=== PATIENT | male | born 1970 | race Two or more races ===

== ENCOUNTER 2018-10-22 18:58 | Emergency (ER) | payer SELFPAY ==
[~2018-10-22] VITALS: Ht 165.1 cm; Wt 34.0 kg
[2018-10-22 19:10] VITALS: BP 114/78
--- NOTE | 2018-10-22 19:10 | NUR ---
ED Nurse Note: Patient walk in c/o cough for 15 days. Patient reports pain all over body, and chest pain when coughing. pt complains of 9/10 pain whern cpughing. pa on the bedside. will continue to monitor.
--- NOTE | 2018-10-22 19:26 | NUR ---
ED Nurse Note: ecologist technician on bedside. rt call for tx. will continue to monitor.
--- NOTE | 2018-10-22 19:27 | Emergency Room Report ---
History of Present Illness General Chief Complaint: Upper Respiratory Illness Source: Patient Present Illness HPI 48-year-old male presents the ER complaining of cough for the past 10 days. States has not taken medication for relief of symptoms. Denies fever. Denies recent travel outside the country. Denies hemoptysis. Reports cough with sputum. Reports cough has led to chest pain that is reproducible. Reports after repeated coughing fits he begins to experience shortness of breath. Denies history of heart attack or heart disease. Denies history of asthma. Reports sick contacts at home with similar flu-like, cough symptoms. Denies calf pain. Denies smoking. Denies cigarette or marijuana use. Denies other aggravating or relieving factors. Denies vomiting or diarrhea. Allergies: Coded Allergies: No Known Allergies (Unverified , 10/22/18) Patient History Past Medical History: see triage record Reviewed Nursing Documentation: PMH: Agreed; PSxH: Agreed Nursing Documentation-PMH Past Medical History: No Stated History Review of Systems All Other Systems: negative except mentioned in HPI Physical Exam Vital Signs Date Time Temp Pulse Resp B/P (MAP) Pulse Ox O2 Delivery O2 Flow Rate FiO2 10/22/18 19:04 98.2 90 18 114/78 95 Sp02 EP Interpretation: reviewed, normal General Appearance: well appearing, no apparent distress, alert, GCS 15, non- toxic Head: normocephalic, atraumatic Eyes: bilateral eye normal inspection, bilateral eye PERRL ENT: hearing grossly normal, normal pharynx, no angioedema, normal voice, uvula midline, moist mucus membranes Neck: full range of motion, no meningismus, no bony tend Respiratory: lungs clear, no rhonchi, no respiratory distress, no accessory muscle use, no wheezing, decreased breath sounds, speaking full sentences, other - Chest tender to palpation, no flail chest, no deformity Cardiovascular #1: regular rate, rhythm, no edema Gastrointestinal: non tender, soft, no mass, non-distended, no guarding, no rebound Genitourinary: no CVA tenderness Musculoskeletal: back normal, digits/nails normal, gait/station normal, normal range of motion, non-tender Neurologic: alert, oriented x3, responsive, motor strength/tone normal, sensory intact Psychiatric: mood/affect normal Skin: no rash Medical Decision Making PA Attestation Dr. Hull is my supervising Physician whom patient management has been discussed with. Diagnostic Impression: Primary Impression: Atypical pneumonia Additional Impression: Bronchitis ER Course Pt presents to ED c/o cough x2 weeks. DDX considered but are not limited to asthma, viral URI, influenza, bronchitis, pneumonia. On PE, chest is TTP; chest pain likely musculoskeletal in nature secondary to cough, does not require cardiac workup at this time. Patient instructed to take NSAIDs as needed for pain symptoms. VITAL SIGNS are WNL, patient is afebrile. Ordered breathing treatment and medication. ER COURSE CXR negative for acute disease per the preliminary reading. Patient provided with prednisone Duoneb breathing treatment provided. Following treatment patient states no longer having difficulty with breathing. Lung sounds improved. Patient is resting comfortably in no acute distress. Due to duration of patient's with antibiotics for atypical pneumonia. ER precautions given. Follow-up with primary care provider. DISCHARGE: -Rx given for Prednisone. -Rx provided for Albuterol MDI. -Rx provided for Tessalon Perles Rx provided for motrin Rx provided for azithromycin At this time pt is stable for d/c to home. Patient is resting comfortably in no acute distress, nontoxic appearing, able to answer questions without difficulty. Patient to take medications as instructed Will provide with patient care instructions and any necessary prescriptions. Care plan and follow-up instructions provided. Patient instructed to follow-up with primary care provider in 3 - 5 days. Patient questions asked and answered. Patient reports understanding and agreement to treatment plan. ER precautions given. Patient instructed to return to ER immediately for any new or worsening of symptoms including but not limited to increasing SOB, persistent fever. - Please note that this Emergency Department Report was dictated using [employer] operator technology software, occasionally this can lead to erroneous entry secondary to interpretation by the dictation equipment. Chest X-Ray Diagnostic Results Chest X-Ray Diagnostic Results : Chest X-Ray Ordered: Yes # of Views/Limited/Complete: 1 View Indication: Chest Pain EP Interpretation: Yes BRYAN Xray: Interpretation reviewed, by supervising MD, and agrees with findings. Interpretation: no consolidation, no effusion, no pneumothorax, no acute cardiopulmonary disease Impression: No acute disease BRYAN ScribNura Hare PA-C Last Vital Signs Date Time Temp Pulse Resp B/P (MAP) Pulse Ox O2 Delivery O2 Flow Rate FiO2 10/22/18 19:04 98.2 90 18 114/78 95 Status: improved Disposition: HOME, SELF-CARE Condition: Stable Scripts Azithromycin* (ZITHROMAX*) 250 Mg Tablet 250 MG ORAL DAILY, #6 TAB 0 Refills Take two tables once daily for 1 day, then one tablet once daily for 4 days. Prov: Vinicio Hare 10/22/18 Benzonatate* (TESSALON PERLE*) 100 Mg Capsule 100 MG ORAL THREE TIMES A DAY, #20 PERLE Prov: Vinicio Hare 10/22/18 Ibuprofen* (MOTRIN*) 600 Mg Tablet 600 MG ORAL Q8H PRN for For Pain, #30 TAB 0 Refills Prov: Vinicio Hare 10/22/18 Albuterol Sulfate* (ALBUTEROL SULFATE MDI*) 8.5 Gm Hfa.aer.ad 2 PUFF INH Q6H, #1 INH 0 Refills Prov: Vinicio Hare 10/22/18 Prednisone* (PREDNISONE*) 20 Mg Tablet 40 MG ORAL DAILY for 4 Days, #8 TAB Prov: Vinicio Hare 10/22/18 Patient Instructions: Acute Bronchitis, [id number], Community-Acquired Pneumonia, Adult, [id number] Additional Instructions: Followup with primary care provider in 3 -5 days. Discuss further treatment referral to pulmonology specialist. Drink plenty of fluids. Take Motrin for pain symptoms. Take medications as directed. Patient questions asked and answered. ER precautions given, patient instructed to return to ER immediately for any new or worsening of symptoms. Vinicio Hare Oct 22, 2018 19:27
[2018-10-22] MEDS ORDERED: Benzonatate 100mg Perles ORAL ONE (19:30)
[2018-10-22] MEDS ORDERED: Albuterol/Ipratropium 3ml neb HHN ONE (19:30)
[2018-10-22] MEDS ORDERED: TESSALON PERLE100 MG ORAL (19:55)
[2018-10-22] MEDS ORDERED: ZITHROMAX250 MG ORAL (19:55)
[2018-10-22] MEDS ORDERED: ALBUTEROL SULF8.5 GM INH (19:55)
[2018-10-22] MEDS ORDERED: PREDNISONE20 MG ORAL (19:55)
[2018-10-22] MEDS ORDERED: IBUPROFEN600 MG ORAL (19:55)
[2018-10-22 20:00] VITALS: BP 114/78
--- NOTE | 2018-10-22 20:00 | NUR ---
ER DISCHARGE NOTE: Patient is cleared to be discharged per ERMD, pt is aox4, on room air, with stable vital signs. pt was given dc and prescription instructions, pt was able to verbalize understanding, pt id band removed without complications. pt is able to ambulate with steady gait. pt took all belongings.
--- NOTE | 2018-10-23 10:58 | Diagnostic Imaging Report ---
Indication: Dyspnea Comparison: None A single view chest radiograph was obtained. Findings: Cardiomediastinal appearance is within normal limits for age. The lungs are clear. Pulmonary vascularity is appropriate. The diaphragmatic contour is smooth and costophrenic angles are sharp. No pleural effusions are identified. The bones are unremarkable. Impression: No acute findings
== END 2018-10-22 20:00 | disposition home or self-care (01) ==
LOC: EMR 19:30
DX: J18.9 Pneumonia, unspecified organism (principal); J40 Bronchitis, not specified as acute or chronic
CPT/HCPCS: 71045; 94640; 99284; J7512; J7620